=== PATIENT | female | born 1950 | race Caucasian/White ===

== ENCOUNTER → 2019-12-18 | Outpatient (CLI) | payer MEDICARE, OTHER | LOC: LAB.O 09:22 | PROVIDERS: ATTEND Internal Medicine Hematology & Oncology | DX: C50.512 Malignant neoplasm of lower-outer quadrant of left female breast (principal) ==

== ENCOUNTER → 2019-12-27 | Outpatient (CLI) | payer MEDICARE, OTHER | LOC: LAB.O 11:47 | PROVIDERS: ATTEND Internal Medicine Hematology & Oncology | DX: Z79.899 Other long term (current) drug therapy (principal) ==

== ENCOUNTER → 2020-02-21 | Outpatient (CLI) | payer MEDICARE, OTHER | LOC: GMA CAST 11:41 | PROVIDERS: ATTEND Family Medicine Sports Medicine | DX: R53.83 Other fatigue (principal) ==

== ENCOUNTER 2020-04-11 22:38 | Emergency (ER) | payer MEDICARE, OTHER ==
[2020-04-11] MEDS ORDERED: IPRATROPIUM/ALBUTEROL 3 ML VIAL NEB ONE (22:49)
[2020-04-11] MEDS ORDERED: FUROSEMIDE INJ 20 MG/2 ML VIAL IV ONE (22:49)
--- NOTE | 2020-04-11 22:52 | ED.PDOC ---
History of Present Illness - General Chief Complaint: General Stated Complaint: swelling of hand,feet, and face Time Seen by Provider: 04/11/20 22:41 - History of Present Illness Initial Comments: 70-year-old female positive past medical history including breast cancer currently on chemotherapy presents to ED complaining of 1 week of progressing peripheral edema and shortness of breath. Patient states she was seen by her PCP earlier in the week but stated everything was fine. Patient states the shortness of breath has become more severe and is worse prompted her to come to the ED tonight. Denies history of similar symptoms. Last chemotherapy was On 03/31/2020. Denies fever/chills, nausea/vomiting/diarrhea, chest pain, abdominal pain. Denies alleviating/aggravating factors. No history of similar symptoms. No others complaints or symptoms at this time. Oncologist: Dr. Nabeel Chi PCP: Dr. Jai Smith Allergies/Adverse Reactions: Allergies Latex Allergy (Verified 04/11/20 22:51) Home Medications: Ambulatory Orders Calcium 600 mg PO DAILY 04/11/20 Cetirizine HCl [ZyrTEC] 10 mg PO BEDTIME 04/11/20 Citalopram Hydrobromide [CeleXA] 20 mg PO DAILY 04/11/20 HYDROcodone 10MG/APAP 325MG [[place] 10/325] 1 ea PO PRN 04/11/20 Hydrochlorothiazide 12.5 mg PO DAILY 04/11/20 Lisinopril 10 mg PO DAILY 04/11/20 Meloxicam 15 mg PO DAILY 04/11/20 Pramipexole Dihydrochloride [Pramipexole Dihydrochlori] 1 mg PO BID 04/11/20 Thyroid [[place] Thyroid] 30 mg PO QID 04/11/20 diphenhydrAMINE HCL [Benadryl] 25 mg PO PRN 04/11/20 Review of Systems - Review of Systems Constitutional: Denies: chills, fever EENTM: Denies: nose congestion, throat pain Respiratory: States: short of breath. Denies: cough Cardiology: States: edema. Denies: chest pain Gastrointestinal/Abdominal: Denies: abdominal pain, diarrhea, nausea, vomiting Genitourinary: Denies: dysuria, frequency Musculoskeletal: Denies: back pain, muscle pain Skin: Denies: change in color, rash Neurological: States: other - no dizziness. Denies: headache Hematologic/Lymphatic: Denies: easy bruising Family Medical History - Family History Mother Family History: Unknown Physical Exam - Physical Exam General Appearance: Alert, Other - mild distress, non-toxic Eye Exam: bilateral normal, bilateral other - no scleral icterus Ears, Nose, Throat: normal ENT inspection Neck: full range of motion, supple, other - no JVD Respiratory: no accessory muscle use, other - mild respiratory distress, trace tachypnea, expiratory wheezing throughout, trace crackles in bases Cardiovascular/Chest: regular rate, rhythm, no gallop, no JVD, no murmur, other - 2+ pitting edema BLE, symmetric Gastrointestinal/Abdominal: normal bowel sounds, non tender, soft, other - no fluid wave, no rebound, no guarding Extremity: pedal edema Neurologic: alert, normal mood/affect, oriented x 3 Skin Exam: normal color, warm/dry, other - no rash Progress - Progress Progress: Gaurav Heck DO Emergency Medicine Physician [id number] Appropriate PPE of surgical mask, gown, gloves, and eye protection (if encounter >5 minutes) utilized with every patient encounter; in accordance with hospital policy. Presents for likely acute CHF possible secondary to chemotherapy. I will perform labs, ekg, imaging, provide appropriate pharmacotherapy, and continue to monitor/reassess. Dispo will depend on labs, EKG, imaging results and overall course in ED; however, I anticipate likely admission. 0016: Recheck patient with spouse at bedside. Patient has now provided paper documentation of prior labs and chemotherapy and immunotherapy drugs provided. Patient now informs that 1 and half to 2 weeks ago she was increased on her levothyroxine and had the dose doubled. Patient is also found to be on atezolizumabImmunomodulation and checkpoint inhibitor. Checkpoint inhibitors a re known precipitants for thyroid storm, and this in the setting of recently doubled dose thyroid replacement as well as elevated Estrella Criteria of 30; pt is in early stages of thyrotoxicosis with concern for progression towards thyroid storm.On 03/17/2020 patient was found to have a TSH of 7.582 and a T4 5.7. Today patient is found to have a TSH of 0.82. I am starting patient on 8 mg IV Decadron, 60 mg p.o. propranolol every 6 hours, methimazole 20 mg every 6 hours. We do not have PTU for administration. Iodine will be administered in approximately 1 hour after dosing of methimazole and propranolol. 00:27 I have consulted with hospitalist Nadeem Munoz, discussed patient's case in ED along with current findings. He will discuss case with the attending and return call. 00:43 Hospitalist Nadeem Munoz's return call. He accepts patient for admission. He recommends keeping patient in ED during administration of these medications to monitor for adverse effect. 02:33 Pharmacist unable to locate PTU or Methimazole in the hospital. The Methimazole stocked is . I will transfer pt for appropriate pharmacotherapy and management. 02:36 I have consulted with the ED physician at [facility] discussed patient's case in ED. He accepts patient for transfer. - Results/Orders Results/Orders: EKG @2322: read @2326. Sinus tachycardia @ 110, left axis deviation, QTc 476, PA and QRS wnl, no ST elevations/depressions, nonspecific ST/T-wave changes. No STEMI. No prior EKG's in [facility] for comparison. 04/11/20 22:45 IV Care:Saline Lock per Protoc QSHIFT IV:Start .ONCE EKG STAT 04/12/20 00:51 ED Intent to Admit Routine 04/12/20 01:00 Propranolol HCl [Inderal] 60 mg PO Q6HR methIMAzole [Tapazole] 20 mg PO Q6HR 04/12/20 22:45 EKG STAT Laboratory Results - last 24 hr 04/11/20 04/11/20 04/11/20 01:00 22:50 22:50 WBC 5.5 RBC 3.75 L Hgb 11.1 L Hct 32.9 L MCV 87.7 MCH 29.6 MCHC 33.7 RDW 17.7 H Plt Count 310 MPV 8.6 Absolute Neuts (auto) 3.50 Absolute Lymphs (auto) 1.50 Absolute Monos (auto) 0.30 Absolute Eos (auto) 0.10 Absolute Basos (auto) 0.10 Neutrophils % 63.8 Lymphocytes % 27.4 Monocytes % 5.9 Eosinophils % 1.5 Basophils % 1.4 Sodium 137 Potassium 4.5 Chloride 97 L Carbon Dioxide 31 Anion Gap 13.5 BUN 35 H Creatinine 1.06 BUN/Creatinine Ratio 33.0 H Random Glucose 129 H Serum Osmolality 283.5 Calcium 9.4 Total Bilirubin 0.8 AST 31 ALT 24 Alkaline Phosphatase 87 Troponin I B-Natriuretic Peptide 21.4 Serum Total Protein 7.0 Albumin 3.8 Globulin 3.2 Albumin/Globulin Ratio 1.2 TSH 0.82 Urine Color Yellow Urine Appearance Clear Urine pH 5.0 Ur Specific [place] 1.020 Urine Protein Negative Urine Glucose (UA) Negative Urine Ketones Negative Urine Blood Negative Urine Nitrite Negative Urine Bilirubin Negative Urine Urobilinogen 0.2 Ur Leukocyte Esterase Trace H Urine RBC 0-1 Urine WBC 0-1 Ur Epithelial Cells 1-3 Urine Bacteria Rare 04/11/20 22:50 WBC RBC Hgb Hct MCV MCH MCHC RDW Plt Count MPV Absolute Neuts (auto) Absolute Lymphs (auto) Absolute Monos (auto) Absolute Eos (auto) Absolute Basos (auto) Neutrophils % Lymphocytes % Monocytes % Eosinophils % Basophils % Sodium Potassium Chloride Carbon Dioxide Anion Gap BUN Creatinine BUN/Creatinine Ratio Random Glucose Serum Osmolality Calcium Total Bilirubin AST ALT Alkaline Phosphatase Troponin I < 0.02 B-Natriuretic Peptide Serum Total Protein Albumin Globulin Albumin/Globulin Ratio TSH Urine Color Urine Appearance Urine pH Ur Specific [place] Urine Protein Urine Glucose (UA) Urine Ketones Urine Blood Urine Nitrite Urine Bilirubin Urine Urobilinogen Ur Leukocyte Esterase Urine RBC Urine WBC Ur Epithelial Cells Urine Bacteria EXAM DESCRIPTION: Chest,1 View CLINICAL HISTORY: 70 years Female, SOB COMPARISON: None TECHNIQUE: Single AP chest radiograph. FINDINGS: Clear lungs. No pneumothorax or pleural effusion. Normal cardiomediastinal contour. Normal osseous structures. IMPRESSION: 1. No discrete active cardiopulmonary process. Please note that chest radiographs have low sensitivity for detection of subtle groundglass opacities. Electronically signed by: Сергей Marquis MD 04/11/2020 11:07 PM [facility] Vital Signs - 24 hr 04/11/20 04/11/20 04/11/20 22:49 23:05 23:09 Temperature 97.7 F Pulse Rate 90 Pulse Rate [ 108 H left] Respiratory 22 18 22 Rate Blood Pressure 143/68 [Left Arm] O2 Sat by Pulse 94 L 96 Oximetry 04/11/20 04/12/20 23:38 01:31 Temperature Pulse Rate 90 Pulse Rate [ 98 H 94 H left] Respiratory 22 20 Rate Blood Pressure 121/59 112/66 [Left Arm] O2 Sat by Pulse 93 L Oximetry Departure - Departure Clinical Impression: Thyrotoxicosis Qualifiers: Thyrotoxicosis type: other Thyrotoxic crisis or storm presence: without thyrotoxic crisis or storm Qualified Code(s): E05.80 - Other thyrotoxicosis without thyrotoxic crisis or storm Chemotherapy adverse reaction Qualifiers: Encounter type: initial encounter Qualified Code(s): T45.1X5A - Adverse effect of antineoplastic and immunosuppressive drugs, initial encounter Dyspnea Qualifiers: Dyspnea type: unspecified Qualified Code(s): R06.00 - Dyspnea, unspecified Time of Disposition: 00:19 Disposition: Transfer to Hospital Condition: Fair Home Medications: Ambulatory Orders Calcium 600 mg PO DAILY 04/11/20 Cetirizine HCl [ZyrTEC] 10 mg PO BEDTIME 04/11/20 Citalopram Hydrobromide [CeleXA] 20 mg PO DAILY 04/11/20 HYDROcodone 10MG/APAP 325MG [[place] 10/325] 1 ea PO PRN 04/11/20 Hydrochlorothiazide 12.5 mg PO DAILY 04/11/20 Lisinopril 10 mg PO DAILY 04/11/20 Meloxicam 15 mg PO DAILY 04/11/20 Pramipexole Dihydrochloride [Pramipexole Dihydrochlori] 1 mg PO BID 04/11/20 Thyroid [[place] Thyroid] 30 mg PO QID 04/11/20 diphenhydrAMINE HCL [Benadryl] 25 mg PO PRN 04/11/20 Critical Care Note - Critical Care Note Total Time (mins): 47 Comments: Critical care time for endocrine and metabolic dysfunction due to thyrotoxicosis with concern for progression to thyroid storm.Patient is being administered with propranolol, methimazole, steroid, and then followed by iodine. Decision To Admit - Decistion To Admit Decision to Admit Date: 04/12/20 Decision to Admit Time: 00:17 Transfer to Outside Facility - Transfer Information Decision to Transfer Date: 04/12/20 Decision to Transfer Time: 02:32 Reason for Transfer: No PTU or Methimazole Accepting Facility: [facility]
--- NOTE | 2020-04-11 23:08 | RAD ---
EXAM DESCRIPTION: Chest,1 View CLINICAL HISTORY: 70 years Female, SOB COMPARISON: None TECHNIQUE: Single AP chest radiograph. FINDINGS: Clear lungs. No pneumothorax or pleural effusion. Normal cardiomediastinal contour. Normal osseous structures. IMPRESSION: 1. No discrete active cardiopulmonary process. Please note that chest radiographs have low sensitivity for detection of subtle groundglass opacities. Electronically signed by: Сергей Marquis MD 04/11/2020 11:07 PM [facility]
[2020-04-12] MEDS ORDERED: DEXAMETHASONE INJ 10 MG/ML VIAL IV ONE (00:38)
[2020-04-12] MEDS ORDERED: PROPRANOLOL HCL 20 MG TAB PO SCH (01:00)
[2020-04-12 02:41] VITALS: TEMP 97.2; O2SAT 94
[2020-04-12 03:33] VITALS: BP 126/72
== END 2020-04-12 03:25 | disposition short-term general hospital (02) ==
LOC: ER 22:38 → MS 04-12 01:57 → UNDOADMOB 04-12 01:57 → ER 04-12 03:25
DX: R06.02 Shortness of breath (principal); T45.1X5A Adverse effect of antineoplastic and immunosuppressive drugs, initial encounter; C50.919 Malignant neoplasm of unspecified site of unspecified female breast; E05.80 Other thyrotoxicosis without thyrotoxic crisis or storm; R00.0 Tachycardia, unspecified; R60.0 Localized edema; Z91.040 Latex allergy status; Z79.899 Other long term (current) drug therapy; Z20.822 Contact with and (suspected) exposure to COVID-19
CPT/HCPCS: 71045; 80053; 81001; 83880; 84443; 84484; 85025; 87635; 93005; 94640; J1100; J1940; J7620